=== PATIENT | male | born 1940 | race Hispanic/Latino ===

== ENCOUNTER 2017-02-02 09:54 | Emergency (ER) | payer MEDICAID, MEDICARE ==
[~2017-02-02] VITALS: Ht 154.9 cm; Wt 56.8 kg
[2017-02-02 10:03] VITALS: BP 140/81; PULSE 60; RESP 14; O2SAT 92
--- NOTE | 2017-02-02 10:13 | ED.REPORT ---
HPI-Eye Problem Date of Service Feb 02, 2017 ED Provider: Day Longoria Patient is a 76 year old male with a hx of Asthma who presents to the ED complaining of R eye pain and redness onset 2 months ago. His eye pain is worse when he first gets up in the morning and is mildly relieved by Aspirin. Associated symptoms include new onset R temporal headache, weight loss, and decreased appetite. He denies blurry vision, discharge, chest pain, SOB, rash, joint swelling, joint pain, or any other symptoms. He has been seen at urgent care and by an eye surgeon x2 for his eye irritation. He was prescribed eye drops by the eye surgeon for an inflamed iris. In triage his visual acuity is as follows: R eye 20/30, L eye 20/40, Both 20/30 He took Aspirin prior to arrival. He has not tried any other medications. Nursing Notes Stated Complaint: EYE IRRITATION Chief Complaint: Eye Nursing Notes Reviewed: Yes Scheduled Polyethylene Glycol 3350 (Miralax) 17 Gm Powd.pack 17 GM PO DAILY Prednisolone Acetate (Prednisolone Acetate) 5 Ml Drops.susp 5 ML OP QID one drop 4x/day Scheduled PRN Hydrocodone-Acetaminophen 5-300 mg (Hydrocodone-Acetaminophen 5-300 mg) 1 Each Tablet 1 TABLET PO QID PRN PRN For Pain General Time Seen by MD: 10:13 Chief Complaint Right eye affected Hx Obtained From: Patient, Daughter, Clay Grinder Arrived By: Walk-in Sudden in Onset?: Yes Onset Occurred: More than a week ago... (2 months) Symptom Duration: Since onset Recent Healthcare: Recent doctor visit, Recent testing, Previous diagnosis, Prior workup Similar Sx Previous: Yes Past Medical History Past Medical History Reports: Asthma, Denies: Coronary artery disease, Diabetes mellitus, Hyperlipidemia, Hypertension , Stroke Past Surgical History None reported Smoking History Current Every Day Smoker, Heavy Tobacco Smoker Social History Other Social History: Good social support Ambulatory Status Independent Review of Systems Review of Systems Note: +decreased appetite Constitutional: Reports: Recent wt loss Eyes: Reports: Eye pain right, Redness right, Denies: Blurred bilateral, Discharge bilateral, Visual loss bilateral Skin: Denies Rash Neurologic: Reports: Headache Complete sys rev & neg: except as marked. Respiratory: Denies: Shortness of breath Cardiovascular: Denies: Chest pain Musculoskeletal: Denies: Joint pain, Joint swelling Physical Exam Initial Vital Signs Vital Signs (First) Date Time Temp Pulse Resp B/P Pulse Ox O2 Delivery O2 Flow Rate FiO2 02/02/17 10:03 36.9 60 14 140/81 92 Room Air Initial VS: Reviewed, Vital signs normal Neck: Full range of motion Psychiatric: Mood/affect normal, Behavior normal, Normal thought content Head / Eyes: Atraumatic, Normocephalic, PERRL Temporal artery tenderness, artery tenderness on R side. R eye slightly injected with minor photophobia to the R General/Constitutional: Awake, Alert, No acute distress Skin: Color NL, No rash, Warm, Dry No synovitis Neurologic: Oriented X3, Speech NL Respiratory / Chest: Breath sounds NL, Breath sounds = bilat, No respiratory distress Cardiovascular: Heart rate NL, Regular rhythm, Heart sounds NL, No gallop, No murmurs, No rubs Abdomen: Atraumatic, Soft, Non-tender Interpretation & Diagnostics Lab Results Interpretation Result Diagram: 02/02/17 1030 02/02/17 1030 Test 02/02/17 10:30 White Blood Count 7.7th/mm3 (3.8-10.1) Red Blood Count 4.65mil/mm3 (4.40-5.80) Hemoglobin 14.6g/dL (13.8-17.2) Hematocrit 44.8% (41.0-50.0) Mean Corpuscular Volume 96.3fL (81-100) Mean Corpuscular Hemoglobin 31.4pg (27.0-35.0) Mean Corpuscular Hemoglobin Concent 32.6% (32.0-37.0) Red Cell Distribution Width 14.6% (12.3-15.4) Platelet Count 245bil/L (150-400) Neutrophils (%) (Auto) 65.0% (40-74) Lymphocytes (%) (Auto) 24.9% (14-46) Monocytes (%) (Auto) 7.5% (4-12) Eosinophils (%) (Auto) 2.2% (0-5) Basophils (%) (Auto) 0.3% (0-3) Erythrocyte Sedimentation Rate 19mm/hr (0-30) Sodium Level 142mEq/L (134-144) Potassium Level 4.4mEq/L (3.5-5.2) Chloride Level 102mEq/L (97-108) Carbon Dioxide Level 28mmol/L (18-29) Blood Urea Nitrogen 12mg/dL (8-27) Creatinine 0.60mg/dL (0.76-1.27) Estimat Glomerular Filtration Rate 140mL/min (>59) Glucose Level 116mg/dL (60-99) Calcium Level 9.4mg/dL (8.5-10.1) Total Bilirubin 0.3mg/dL (0.0-1.2) Aspartate Amino Transf (AST/SGOT) 23U/L (0-50) Alanine Aminotransferase (ALT/SGPT) 27U/L (0-44) Alkaline Phosphatase 76U/L (25-160) Total Protein 6.6g/dL (6.4-8.4) Albumin 3.8g/dL (3.4-5.0) Re-Eval/Medical Decision Med Decision/Clinical Course pt has had right eye issues for about 2 months now. Has been treated for allergy and iritis. Opthomology apt 3 wks ago. Follow up 1.5wks ago. Provider notes say improved at that time with prednisilone, pt indictes that there was no improvement at all at that time. Labs are unremarkable, including sed rate, suggesting that temoral arteritis is less likely. with no other neuro symptoms and no visual acuity changes tumor/clot/retinal issues/glaucoma are less likely Call to [facility] to see what next steps should be to further diagnose this Right eye pain/erythema. Re-Evaluation/Progress #1: Time of Eval: 12:18 Re-Evaluation/Progress Note: Rechecked patient who is now pain free. Discussed lab results. Discussed need for follow up with eye doctor again. Re-Evaluation/Progress #2: Time of Eval: 12:48 Re-Evaluation/Progress Note: Patient's instructions from opthalmology (01/22/17) was to taper off of the eye drops and return if his symptoms return. Discussed this and follow up plan with patient. Patient understands and agrees with plan. All questions addressed at this time. Counseled Regarding: Diagnosis, Lab results, Need for follow-up, When/why to return to ED Discharge & Departure Primary Impression: Iritis Additional Impression: Constipation Constipation type: unspecified constipation type Qualified Code: K59.00 - Constipation, unspecified Ruled Out: Temporal arteritis Disposition: Home Discharge Condition All VS Reviewed: Yes Condition: Stable Patient Instructions: Iritis (ED) Additional Instructions: Thank you for coming to the emergency department today. Your lab results were normal. I discussed your visit with the eye doctor you saw a few weeks ago. They recommend that you restart the eye drops, 1 drop 4 times a day in your R eye. Call Sunday to schedule an appointment to be seen next week. If you have problems over the weekend, call the on-call physician at [phone]. Referrals: Troy Bond MD (PCP) Scribe Attestation Portions of this note were transcribed by Domenic Barboza. I, Dr. Longoria personally performed the history, physical exam and medical decision-making; I reviewed and confirmed the accuracy of the information in the transcribed note. Signed by: Soy Lopez, 02/02/17 at 135 copies to: Troy Bond MD, Shawna L MD Feb 02, 2017 10:13 DOMENIC BARBOZA Feb 02, 2017 10:22
[2017-02-02] MEDS ORDERED: HYDROcodone-APAP 5-325 mg Tablet PO ONE (10:35)
[2017-02-02 10:47] LABS: BASOPHILS % (AUTO) 0.3 % (0-3); EOSINOPHILS % (AUTO) 2.2 % (0-5); MONOCYTES % (AUTO) 7.5 % (4-12); Mean Corpuscular Hemoglobin 31.4 pg (27.0-35.0); Mean Corpuscular Volume 96.3 fL (81-100); Platelet Count 245 bil/L (150-400)
[2017-02-02 11:35] LABS: ERYTHROCYTE SEDIMENTATION RATE 19 mm/hr (0-30)
[2017-02-02 11:40] VITALS: BP 111/67; PULSE 65; RESP 15; O2SAT 94
[2017-02-02] MEDS ORDERED: HYDR-3090 PO (13:52)
[2017-02-02] MEDS ORDERED: POLY17PO6 PO (13:52)
[2017-02-02] MEDS ORDERED: PRED5DRO6 OP (13:52)
== END 2017-02-02 14:01 | disposition home or self-care (01) ==
LOC: SED 09:54
DX: H20.9 Unspecified iridocyclitis (principal); K59.00 Constipation, unspecified; R51 Headache; R63.4 Abnormal weight loss; J45.909 Unspecified asthma, uncomplicated; F50.89 Other specified eating disorder; F17.200 Nicotine dependence, unspecified, uncomplicated

== ENCOUNTER 2017-02-05 11:07 | Emergency (ER) | payer MEDICARE ==
[~2017-02-05] VITALS: Ht 157.5 cm; Wt 54.5 kg
[~2017-02-05 11:07] MED LIST: HYDR-3090 PO; POLY17PO6 PO; PRED5DRO6 OP
[2017-02-05 11:11] VITALS: BP 122/72; PULSE 59; RESP 20; O2SAT 92
--- NOTE | 2017-02-05 11:22 | ED.REPORT ---
HPI-Abd Pain F 40 and Over Date of Service Feb 05, 2017 ED Provider: Vinny Butterfield MD Pt is a 76 year old male with a history of iritis who presents to the ED complaining of worsening right eye pain onset 3 days ago. He c/o associated headache, decreased appetite, weakness, dry mouth, nausea, and vomiting. Pt presented to the ED on 02/02/17 with similar symptoms and was diagnosed with iritis and constipation. He was prescribed eye drops to treat the iritis. Pt's daughter reports that the pt was initially feeling better after presenting to the ED, but his symptoms have worsened since overall. Nursing Notes Stated Complaint: ABDOMINAL PAIN,VOMITING Chief Complaint: Male Abdominal Pain Nursing Notes Reviewed: Yes Allergies: Coded Allergies: No Known Allergies (Unverified , 02/05/17) Scheduled Polyethylene Glycol 3350 (Miralax) 17 Gm Powd.pack 17 GM PO DAILY Prednisolone Acetate (Prednisolone Acetate) 5 Ml Drops.susp 5 ML OP QID one drop 4x/day Scheduled PRN Hydrocodone-Acetaminophen 5-300 mg (Hydrocodone-Acetaminophen 5-300 mg) 1 Each Tablet 1 TABLET PO QID PRN PRN For Pain oxyCODONE-Acetaminophen 5-325 mg (oxyCODONE-Acetaminophen 5-325 mg) 1 Each Tablet 1-2 TAB PO Q6H PRN PRN For Pain General Time Seen by MD: 11:21 Chief Complaint Other (Right eye pain) Hx Obtained From: Patient Arrived By: Walk-in Sudden in Onset?: No Onset Occurred: 3 days ago Symptom Duration: Since onset Quality: Painful Radiation: : Does not radiate Severity: Current: Moderate Severity: Maximum: Moderate Recent Healthcare: Recent doctor visit Similar Sx Previous: Yes Past Medical History Past Medical History Notes: Dr. Reagan, PCP Dr. Moiz Herrmann, opthamalogist Past Medical History Iritis Reports: Asthma Past Surgical History None reported Smoking History Current Every Day Smoker, Heavy Tobacco Smoker Social History Other Social History: Good social support Ambulatory Status Independent Review of Systems + Dry mouth Constitutional: Reports: Weakness - generalized GI: Reports: Nausea, Vomiting Complete sys rev & neg: except as marked. Eyes: Reports: Eye pain right Neurologic: Reports: Headache Physical Exam Vital Signs Vital Signs (First) Date Time Temp Pulse Resp B/P Pulse Ox O2 Delivery O2 Flow Rate FiO2 02/05/17 11:11 36.4 59 20 122/72 92 Room Air Initial VS: Reviewed Neck: Supple, Full range of motion Extremities: Vascular intact, Neuro intact Skin: Warm, Dry, No cyanosis Neurologic: Alert, Oriented, Nonfocal Psychiatric: Mood/affect normal, Behavior normal General/Constitutional: Awake, Alert, Cooperative Smells like Tabacco Respiratory / Chest: Atraumatic, Breath sounds NL, Breath sounds = bilat Barrell shaped chest Cardiovascular: Heart rate NL, Regular rhythm, Heart sounds NL No peripheral edema Abdomen: Atraumatic, Soft, Non-tender Back: Atraumatic, Full range of motion Head / Eyes: Atraumatic, Normocephalic Injected right sclera. No pain with eye movement. No temporal pain. Interpretation & Diagnostics Lab Results Interpretation Result Diagram: 02/05/17 1140 02/05/17 1140 Test 02/05/17 11:40 White Blood Count 7.3th/mm3 (3.8-10.1) Red Blood Count 4.59mil/mm3 (4.40-5.80) Hemoglobin 14.3g/dL (13.8-17.2) Hematocrit 44.7% (41.0-50.0) Mean Corpuscular Volume 97.4fL (81-100) Mean Corpuscular Hemoglobin 31.2pg (27.0-35.0) Mean Corpuscular Hemoglobin Concent 32.0% (32.0-37.0) Red Cell Distribution Width 14.3% (12.3-15.4) Platelet Count 254bil/L (150-400) Neutrophils (%) (Auto) 66.8% (40-74) Lymphocytes (%) (Auto) 25.2% (14-46) Monocytes (%) (Auto) 6.1% (4-12) Eosinophils (%) (Auto) 1.8% (0-5) Basophils (%) (Auto) 0.1% (0-3) Hold Purple Top Tube Received (Received) Hold Blue Top Tube Received (Received) Sodium Level 141mEq/L (134-144) Potassium Level 4.1mEq/L (3.5-5.2) Chloride Level 98mEq/L (97-108) Carbon Dioxide Level 30mmol/L (18-29) Blood Urea Nitrogen 18mg/dL (8-27) Creatinine 0.71mg/dL (0.76-1.27) Estimat Glomerular Filtration Rate 115mL/min (>59) Glucose Level 117mg/dL (60-99) Calcium Level 9.4mg/dL (8.5-10.1) Total Bilirubin 0.2mg/dL (0.0-1.2) Aspartate Amino Transf (AST/SGOT) 16U/L (0-50) Alanine Aminotransferase (ALT/SGPT) 19U/L (0-44) Alkaline Phosphatase 69U/L (25-160) Total Protein 6.6g/dL (6.4-8.4) Albumin 3.6g/dL (3.4-5.0) Hold Lawrence Top Tube Received (Received) Hold [place] Top Tube Received (Received) Re-Eval/Medical Decision Source of Hx: Old records Re-Evaluation/Progress : Time of Eval: 14:40 Re-Evaluation/Progress Note: Pt rechecked. Informed pt of plan for discharge. Pt understands and agrees with plan for discharge. F/U instructions and RTER warnings given. All questions addressed. Counseled Regarding: Diagnosis, Lab results, Need for follow-up, When/why to return to ED Discharge & Departure Primary Impression: Iritis Disposition: Home Discharge Condition All VS Reviewed: Yes Condition: Stable Patient Instructions: Iritis (ED) Additional Instructions: Go to the eye clinic for further evaluation. Take Percocet as needed for more severe pain. Referrals: Juana Reagan MD Attestation Portions of this note were transcribed by Juana Damon. I, Dr. Butterfield personally performed the history, physical exam and medical decision-making; I reviewed and confirmed the accuracy of the information in the transcribed note. Signed by: Soy Cheng, 02/05/17 and 13:30. copies to: Juana Reagan MD, Kirk H MD Feb 05, 2017 11:22 Juana Palacios Feb 05, 2017 11:30
[2017-02-05] MEDS ORDERED: 0.9% Sodium Chloride 1,000 ML IV ONE (11:40)
[2017-02-05] MEDS ORDERED: MethylprednisoLONE Sodium Succinate 40 mg/mL Inj IVPUSH ONE (11:40)
[2017-02-05 12:13] LABS: BASOPHILS % (AUTO) 0.1 % (0-3); EOSINOPHILS % (AUTO) 1.8 % (0-5); MONOCYTES % (AUTO) 6.1 % (4-12); Mean Corpuscular Hemoglobin 31.2 pg (27.0-35.0); Mean Corpuscular Volume 97.4 fL (81-100); NEUTROPHILS % (AUTO) 66.8 % (40-74); Platelet Count 254 bil/L (150-400)
[2017-02-05] MEDS ORDERED: OXYC1TAB24 PO (14:48)
== END 2017-02-05 15:04 | disposition home or self-care (01) ==
LOC: SED 11:07
DX: H20.9 Unspecified iridocyclitis (principal); K59.00 Constipation, unspecified; R51 Headache; R63.0 Anorexia; R53.1 Weakness; R11.2 Nausea with vomiting, unspecified; R68.2 Dry mouth, unspecified; J45.909 Unspecified asthma, uncomplicated; F17.200 Nicotine dependence, unspecified, uncomplicated
CPT/HCPCS: 36415; 80053; 85025; 96361; 96374; 99284; J2920; J7030